=== PATIENT | male | born 1970 | race Caucasian/White ===

== ENCOUNTER 2019-06-28 15:43 | Emergency (ER) | payer OTHER ==
[~2019-06-28] VITALS: Ht 175.2 cm; Wt 82.6 kg
[~2019-06-28 15:43] MED LIST: DOXYCYCLINE100 M3 PO; PREDNISONE20 M1 PO
[2019-06-28 16:22] LABS: BASO # 0.1 10*3/uL (0.0-0.1); BASO % 0.8 % (0.0-1.0); EOS # 0.1 10*3/uL (0.0-0.4); EOS % 1.5 % (1.0-4.0); HEMATOCRIT 40.9 % (42.0-52.0); LYMPH % 30.4 % (27.0-41.0); MEAN CELL VOLUME 95.8 fl (80.0-94.0); MEAN CORPUSCULAR HGB 32.8 pg (27.0-31.0); MEAN CORPUSCULAR HGB CONC 34.2 g/dl (33.0-37.0); MEAN PLATELET VOLUME 9.4 fl (9.6-12.3); MONO # 0.5 10*3/uL (0.1-1.0); MONO % 7.3 % (3.0-9.0); NEUT % 59.8 % (47.0-73.0); PLATELET COUNT AUTOMATED 308 10*3/uL (130-400); RED BLOOD COUNT 4.27 10*6/uL (4.50-5.90); RED CELL DISTRI WIDTH 12.4 % (0-14.5); WHITE BLOOD COUNT 6.6 10*3/uL (4.8-10.8)
[2019-06-28 16:38] LABS: ALBUMIN 3.9 gm/dl (3.1-4.5); ALKALINE PHOSPHATASE 56 U/L (45-117); BUN 16 mg/dl (7-24); CHLORIDE 108 mmol/L (98-107); CREATININE 1.13 mg/dL (0.70-1.30); POTASSIUM 4.1 mmol/L (3.5-5.1); SGOT/AST 19 IU/L (3-35); SGPT/ALT 24 U/L (12-78); SODIUM 139 mmol/L (136-145); TOTAL PROTEIN 7.5 gm/dL (6.4-8.2)
[2019-06-28] MEDS ORDERED: FLONASE ALLERG9.9 ML NAS (17:47)
[2019-06-28] MEDS ORDERED: ZITHROMAX250 MG PO (17:47)
[2019-06-28] MEDS ORDERED: ZYRTEC10 MG PO (17:47)
== END 2019-06-28 17:53 | disposition home or self-care (01) ==
LOC: ED 15:43
PROVIDERS: Nurse Practitioner Family
DX: J01.90 Acute sinusitis, unspecified (principal); F17.200 Nicotine dependence, unspecified, uncomplicated; Z88.0 Allergy status to penicillin

== ENCOUNTER 2019-07-24 12:54 | Emergency (ER) | payer OTHER ==
[~2019-07-24] VITALS: Ht 175.2 cm; Wt 88.5 kg
[~2019-07-24 12:54] MED LIST changes: +FLONASE ALLERG9.9 ML NAS; +ZITHROMAX250 MG PO; +ZYRTEC10 MG PO
[2019-07-24] MEDS ORDERED: CYCLOBENZAPRINE5 M3 PO (16:25)
[2019-07-24] MEDS ORDERED: Motrin,Rufen800 MG PO (16:25)
[2019-07-24] MEDS ORDERED: PREDNISONE10 MG PO (16:25)
== END 2019-07-24 16:42 | disposition home or self-care (01) ==
LOC: ED 12:54
DX: S16.1XXA Strain of muscle, fascia and tendon at neck level, initial encounter (principal); Z88.0 Allergy status to penicillin; Z79.899 Other long term (current) drug therapy; X58.XXXA Exposure to other specified factors, initial encounter; Y93.89 Activity, other specified; Y92.89 Other specified places as the place of occurrence of the external cause; Y99.8 Other external cause status

== ENCOUNTER 2020-11-15 05:15 | Emergency (ER) | payer OTHER ==
[~2020-11-15] VITALS: Ht 175.2 cm; Wt 81.6 kg
[~2020-11-15 05:15] MED LIST changes: +CYCLOBENZAPRINE5 M3 PO; +Motrin,Rufen800 MG PO; +PREDNISONE10 MG PO
[2020-11-15 06:30] LABS: BASO # 0.1 10*3/uL (0.0-0.1); BASO % 0.8 % (0.0-1.0); EOS # 0.1 10*3/uL (0.0-0.4); EOS % 1.8 % (1.0-4.0); HEMATOCRIT 37.3 % (42.0-52.0); LYMPH % 32.3 % (27.0-41.0); MEAN CORPUSCULAR HGB 32.2 pg (27.0-31.0); MEAN CORPUSCULAR HGB CONC 34.3 g/dl (33.0-37.0); MEAN PLATELET VOLUME 9.7 fl (9.6-12.3); MONO # 0.5 10*3/uL (0.1-1.0); MONO % 8.2 % (3.0-9.0); NEUT # 3.5 10*3/uL (2.3-7.9); NEUT % 56.7 % (47.0-73.0); PLATELET COUNT AUTOMATED 297 10*3/uL (130-400); RED BLOOD COUNT 3.97 10*6/uL (4.50-5.90); RED CELL DISTRI WIDTH 12.2 % (0-14.5); WHITE BLOOD COUNT 6.2 10*3/uL (4.8-10.8)
[2020-11-15 06:48] LABS: BUN 17 mg/dl (7-24); CHLORIDE 102 mmol/L (98-107); CREATININE 1.01 mg/dL (0.70-1.30); POTASSIUM 3.7 mmol/L (3.5-5.1); SGOT/AST 23 IU/L (3-35); SGPT/ALT 21 U/L (12-78); SODIUM 138 mmol/L (136-145); TOTAL PROTEIN 7.1 gm/dL (6.4-8.2)
[2020-11-15 06:50] LABS: ALKALINE PHOSPHATASE 56 U/L (45-117)
[2020-11-15 06:51] LABS: TROPONIN I < 0.015 ng/ml (<0.045)
[2020-11-15] MEDS ORDERED: PRINIVIL20 M1 PO (07:05)
== END 2020-11-15 07:49 | disposition home or self-care (01) ==
LOC: ED 05:15
PROVIDERS: Student in an Organized Health Care Education/Training Program
DX: I16.0 Hypertensive urgency (principal); Z79.899 Other long term (current) drug therapy; Z88.0 Allergy status to penicillin

== ENCOUNTER → 2022-12-18 | Outpatient (CLI) | payer OTHER ==
[~2022-12-18] MED LIST changes: +PRINIVIL20 M1 PO
== END | disposition home or self-care (01) ==
LOC: RAD 14:20
PROVIDERS: ATTEND Family Medicine
DX: S93.409A Sprain of unspecified ligament of unspecified ankle, initial encounter (principal); X58.XXXA Exposure to other specified factors, initial encounter; Y93.89 Activity, other specified; Y92.89 Other specified places as the place of occurrence of the external cause; Y99.8 Other external cause status

== ENCOUNTER 2024-11-10 07:59 | Emergency (ER) | payer OTHER ==
[~2024-11-10] VITALS: Ht 175.2 cm; Wt 72.6 kg
== END 2024-11-10 10:27 | disposition home or self-care (01) ==
LOC: ED 07:59
DX: K40.90 Unilateral inguinal hernia, without obstruction or gangrene, not specified as recurrent (principal); Z88.0 Allergy status to penicillin

== ENCOUNTER 2024-12-02 08:42 | Emergency (ER) | payer OTHER ==
[~2024-12-02] VITALS: Ht 175.2 cm; Wt 68.0 kg
[2024-12-02] MEDS ORDERED: CLINDAMYCIN HC300 MG PO (09:24)
[2024-12-02] MEDS ORDERED: MELOXICAM15 MG PO (09:24)
[2024-12-02] MEDS ORDERED: Ketorolac Tromethamine 30 MG/ML VIAL IM ONE (09:25)
== END 2024-12-02 09:37 | disposition home or self-care (01) ==
LOC: ED 08:42
DX: K04.7 Periapical abscess without sinus (principal); Z88.0 Allergy status to penicillin

== ENCOUNTER → 2024-12-13 | Day surgery (SDC) | payer OTHER ==
[~2024-12-13] VITALS: Ht 175.2 cm; Wt 68.0 kg
[~2024-12-13] MED LIST changes: +ACETAMINOPHEN 100 ML IV ONE; +BUPivacaine 0.5% 30 ML IV ONE; +CLINDAMYCIN HC300 MG PO; +Dexamethasone Sodium Phospha 4 MG/ML VIAL IV ONE; +Ketorolac Tromethamine 30 MG/ML VIAL IV ONE; +Lidocaine Hydrochloride 2% 5 ML SDV IV ONE; +MELOXICAM15 MG PO; +Midazolam Hydrochloride 2 MG/2 ML VIAL IV ONE; +Ondansetron Hydrochloride 4 MG/2 ML VIAL IV ONE; +PERCOCET 5-3251 EACH PO; +PROPOFOL 200 MG/20 ML VIAL IV ONE; +ROCURONIUM BROMIDE 50 MG/5 ML SYRINGE IV ONE; +SEVOFLURANE 250 ML BOT INH ONE; +SODIUM CHLORIDE 0.9% 1,000 ML IV ONE; +SODIUM CHLORIDE 0.9% 100 ML IV ONE; +SUGAMMADEX SODIUM 200 MG/2 ML VIAL IV ONE; +ceFAZolin sodium/sodium chlor 20 ML IV ONE; +dexmedeTOMIDine HCL 200 MCG/2 ML VIAL IV ONE; +fentaNYL CITRATE 100 MCG/2 ML VIAL IV ONE; +hydrALAZINE hydrochloride 20 MG/ML VIAL IV ONE
[2024-12-13 07:01] VITALS: BP 184/101
[2024-12-13 08:24] VITALS: BP 170/101
[2024-12-13 08:36] VITALS: BP 158/101
[2024-12-13 08:50] VITALS: BP 166/100
[2024-12-13 09:10] VITALS: BP 173/104
[2024-12-13 09:23] VITALS: BP 160/92
== END | disposition home or self-care (01) ==
LOC: SDC 12-10 13:15
PROVIDERS: ATTEND Surgery
DX: K40.90 Unilateral inguinal hernia, without obstruction or gangrene, not specified as recurrent (principal); I10 Essential (primary) hypertension; K21.9 Gastro-esophageal reflux disease without esophagitis; F32.A Depression, unspecified; F12.90 Cannabis use, unspecified, uncomplicated; F17.210 Nicotine dependence, cigarettes, uncomplicated; Z98.890 Other specified postprocedural states; Z79.899 Other long term (current) drug therapy; Z88.0 Allergy status to penicillin; Z82.49 Family history of ischemic heart disease and other diseases of the circulatory system

== ENCOUNTER → 2025-01-19 | Outpatient (CLI) | payer OTHER ==
[~2025-01-19] MED LIST changes: -ACETAMINOPHEN 100 ML IV ONE; -BUPivacaine 0.5% 30 ML IV ONE; -Dexamethasone Sodium Phospha 4 MG/ML VIAL IV ONE; -Ketorolac Tromethamine 30 MG/ML VIAL IV ONE; -Lidocaine Hydrochloride 2% 5 ML SDV IV ONE; -Midazolam Hydrochloride 2 MG/2 ML VIAL IV ONE; -Ondansetron Hydrochloride 4 MG/2 ML VIAL IV ONE; -PROPOFOL 200 MG/20 ML VIAL IV ONE; -ROCURONIUM BROMIDE 50 MG/5 ML SYRINGE IV ONE; -SEVOFLURANE 250 ML BOT INH ONE; -SODIUM CHLORIDE 0.9% 1,000 ML IV ONE; -SODIUM CHLORIDE 0.9% 100 ML IV ONE; -SUGAMMADEX SODIUM 200 MG/2 ML VIAL IV ONE; -ceFAZolin sodium/sodium chlor 20 ML IV ONE; -dexmedeTOMIDine HCL 200 MCG/2 ML VIAL IV ONE; -fentaNYL CITRATE 100 MCG/2 ML VIAL IV ONE; -hydrALAZINE hydrochloride 20 MG/ML VIAL IV ONE
== END ==
LOC: CT 08:57
PROVIDERS: ATTEND Physician Assistant
DX: Z12.2 Encounter for screening for malignant neoplasm of respiratory organs (principal); J43.9 Emphysema, unspecified; R91.1 Solitary pulmonary nodule; F17.210 Nicotine dependence, cigarettes, uncomplicated